=== PATIENT | female | born 1955 | race Caucasian/White ===

== ENCOUNTER → 2016-09-30 | Outpatient (CLI) | payer OTHER ==
[~2016-09-30] MED LIST: ASPIR-LOW81 MG PO; ASPIR-LOX325 MG PO
== END ==
LOC: MC.RAD 10:32
DX: Z12.31 Encounter for screening mammogram for malignant neoplasm of breast (principal); N63 Unspecified lump in breast

== ENCOUNTER → 2016-10-03 | Outpatient (CLI) | payer OTHER | LOC: MC.RAD 09:00 | DX: N63 Unspecified lump in breast (principal) ==

== ENCOUNTER → 2017-01-16 | Outpatient (CLI) | payer OTHER | LOC: COL.RAD 09:04 | DX: N39.46 Mixed incontinence (principal); R10.2 Pelvic and perineal pain; R35.0 Frequency of micturition ==

== ENCOUNTER → 2017-04-09 | Outpatient (CLI) | payer OTHER | LOC: MC.RAD 10:00 | DX: N63 Unspecified lump in breast (principal); R92.2 Inconclusive mammogram ==

== ENCOUNTER → 2017-09-04 | Outpatient (REF) | LOC: ZLAB.WCH 19:04 | DX: Z01.89 Encounter for other specified special examinations (principal) ==

== ENCOUNTER → 2017-11-20 | Outpatient (CLI) | payer OTHER | LOC: MC.RAD 10-22 11:00 | DX: Z01.89 Encounter for other specified special examinations (principal) ==

== ENCOUNTER → 2018-04-12 | Outpatient (CLI) | payer OTHER | LOC: MC.RAD 10:15 | DX: Z12.31 Encounter for screening mammogram for malignant neoplasm of breast (principal) ==